=== PATIENT | male | born 1970 | race Hispanic/Latino ===

== ENCOUNTER 2024-03-23 03:01 | Emergency (ER) | payer SELFPAY ==
[2024-03-23] MEDS ORDERED: MORPHINE 4 MG/ML SYR ONE (03:13)
[2024-03-23] MEDS ORDERED: HYDROCODONE/APAP 5/325 MG TAB ONE (04:48)
[2024-03-23] MEDS ORDERED: KETOROLAC 30 MG/ML INJ ONE (04:48)
--- NOTE | 2024-03-23 05:39 | EDPHYS ---
Physician Documentation [facility] Name: Brian Bahean Age: 53 yrs Sex: Male : 1970 Arrival Date: 03/23/2024 Time: 03:01 Bed 6 Private MD: ED Physician Giorgio Cummins HPI: 03/23 03:31 This 53 yrs old Male presents to ER via EMS with complaints of Wrist Injury. rt 03:31 Patient presents to the ED with a wrist injury occurring at about 10 PM. Patient was rt walking, tripped, landing onto his wrist. States that the pain worsened this evening. Denies other injury, other acute complaints, symptoms are aching nature, nonradiating, moderate severity, no other aggravating or alleviating factors.. Historical: - Allergies: 03:07 No Known Allergies; bm8 - Home Meds: 03:07 None [Active]; bm8 - PMHx: 03:07 None; bm8 - PSHx: 03:07 None; bm8 - Immunization history:: Adult Immunizations unknown. - Infectious Disease History:: Denies. - Social history:: Smoking status: Patient reports the use of cigarette tobacco products, smokes one-half pack cigarettes per day, Patient uses alcohol, street drugs, marijuana. - Family history:: not pertinent. ROS: 03:31 Constitutional: Negative for fever, chills, and weight loss, Cardiovascular: Negative rt for chest pain, palpitations, and edema, Respiratory: Negative for shortness of breath, cough, wheezing, and pleuritic chest pain, Abdomen/GI: Negative for abdominal pain, nausea, vomiting, diarrhea, and constipation, Skin: Negative for injury, rash, and discoloration, Neuro: Negative for headache, weakness, numbness, tingling, and seizure, 03:31 MS/extremity: Positive for pain, swelling, Exam: 03:31 Constitutional: This is a well developed, well nourished patient who is awake, alert, rt and in no acute distress. Head/Face: Normocephalic, atraumatic. Chest/axilla: Normal chest wall appearance and motion. Nontender with no deformity. No lesions are appreciated. Cardiovascular: Regular rate and rhythm with a normal S1 and S2. No gallops, murmurs, or rubs. Normal PMI, no JVD. No pulse deficits. Respiratory: Lungs have equal breath sounds bilaterally, clear to auscultation and percussion. No rales, rhonchi or wheezes noted. No increased work of breathing, no retractions or nasal flaring. Abdomen/GI: Soft, non-tender, with normal bowel sounds. No distension or tympany. No guarding or rebound. No evidence of tenderness throughout. Skin: Warm, dry with normal turgor. Normal color with no rashes, no lesions, and no evidence of cellulitis. Neuro: Awake and alert, GCS 15, oriented to person, place, time, and situation. Cranial nerves II-XII grossly intact. Motor strength 5/5 in all extremities. Sensory grossly intact. Cerebellar exam normal. Normal gait. 03:31 Musculoskeletal/extremity: Tenderness over left scaphoid, mild swelling noted, no other focal areas of tenderness, no deformities, pulses, motor, sensation intact. Vital Signs: 03:03 BP 142 / 92; Pulse 105; Resp 18; Temp 98.1; Pulse Ox 98% on R/A; Weight 61.23 kg; bm8 Height 5 ft. 3 in. ; Pain 9/10; 04:52 BP 134 / 87; Pulse 87; Resp 19; Temp 98.1; Pulse Ox 100% ; Pain 9/10; bm8 06:05 BP 134 / 99; Pulse 80; Resp 17; Temp 98.1; Pulse Ox 100% ; Pain 3/10; bm8 03:03 Body Mass Index 23.91 (61.23 kg, 160.02 cm) bm8 03:03 Pain Scale: Adult bm8 04:52 Pain Scale: Adult bm8 06:05 Pain Scale: Adult bm8 Hemanth Coma Score: 03:11 Eye Response: spontaneous(4). Motor Response: obeys commands(6). Verbal Response: bm8 oriented(5). Total: 15. 06:05 Eye Response: spontaneous(4). Motor Response: obeys commands(6). Verbal Response: bm8 oriented(5). Total: 15. MDM: 03:02 Patient medically screened. rt 05:39 Differential diagnosis: Fracture, sprain. Data reviewed: vital signs, nurses notes, rt radiologic studies. Independent interpretation of the following test(s) in the Emergency Department X-Ray: My interpretation is No fracture seen on interpretation of x-ray images. Counseling: I had a detailed discussion with the patient and/or guardian regarding the historical points, exam findings, and any diagnostic results supporting the discharge/admit diagnosis, radiology results, the need for outpatient follow up, Discussed with patient possibility of radiooccult scaphoid fracture, instructed patient to follow-up in 1 week's time if his symptoms persist for repeat imaging. Response to treatment: the patient's symptoms have markedly improved after treatment. 03/23 03:07 Order name: Wrist Left (3 View) XRAY rt 03/23 05:38 Order name: Thumb Spica Splint; Complete Time: 06:05 rt Administered Medications: 03:18 Drug: morphine IM 4 mg IM once Route: IM; Site: right deltoid; rg5 04:52 Follow up: Response: No adverse reaction bm8 04:55 Drug: HYDROcodone-acetaminophen PO 5 mg-325 mg 1 tabs PO once Route: PO; rg5 06:05 Follow up: Response: No adverse reaction bm8 04:56 Drug: Ketorolac IM 15 mg IM once Route: IM; Site: left deltoid; rg5 06:05 Follow up: Response: No adverse reaction bm8 Disposition Summary: 03/23/24 05:39 Discharge Ordered Notes: Location: Home rt Problem: new rt Symptoms: have improved rt Condition: Stable rt Diagnosis - Sprain of unspecified part of left wrist and hand rt Followup: rt - With: Private Physician - When: 1 week - Reason: Discharge Instructions: - Discharge Summary Sheet rt - Wrist Sprain, Adult rt Forms: - Medication Reconciliation Form rt - Antibiotic Education rt - Prescription Opioid Use rt - Patient Portal Instructions rt - Leadership Thank You Letter rt Prescriptions: - Tramadol 50 mg Oral Tablet - take 1 tablet ORAL route every 8 hours as needed; 12 tablet; Refills: 0, rt Product Selection Permitted Signatures: Dispatcher [employer] Giorgio Lozano MD MD rt Manuel Santos RN RN bm8 Po Odonnell RN RN rg5
--- NOTE | 2024-03-23 05:39 | ER ---
Nurse's Notes [facility] Name: Brian Bahena Age: 53 yrs Sex: Male : 1970 Arrival Date: 03/23/2024 Time: 03:01 Bed 6 Private MD: Diagnosis: Sprain of unspecified part of left wrist and hand Presentation: 03/23 03:03 Chief complaint: Patient states: "I fell and tried to catch myself with my left hand , bm8 but now I am having pain and swelling in my left hand.". Coronavirus screen: Vaccine status: Patient reports receiving the 2nd dose of the covid vaccine. At this time, the client does not indicate any symptoms associated with coronavirus-19. Ebola Screen: Patient negative for fever greater than or equal to 101.5 degrees Fahrenheit, and additional compatible Ebola Virus Disease symptoms Patient denies exposure to infectious person. Patient denies travel to an Ebola-affected area in the 21 days before illness onset. No symptoms or risks identified at this time. Initial Sepsis Screen: Does the patient meet any 2 criteria? No. Patient's initial sepsis screen is negative. Does the patient have a suspected source of infection? No. Patient's initial sepsis screen is negative. Risk Assessment: Do you want to hurt yourself or someone else? Patient reports no desire to harm self or others. Onset of symptoms was March 22, 2024 at 19:30. 03:03 Method Of Arrival: EMS: [facility] bm8 03:03 Acuity: KAREN 4 bm8 Triage Assessment: 03:07 General: Appears in no apparent distress. uncomfortable, Behavior is calm, cooperative, bm8 appropriate for age. Pain: Complains of pain in left hand Pain does not radiate. Pain radiates to left arm Pain currently is 9 out of 10 on a pain scale. Quality of pain is described as aching, crampy. EENT: No deficits noted. No signs and/or symptoms were reported regarding the EENT system. Neuro: No deficits noted. Level of Consciousness is awake, alert, obeys commands, Oriented to person, place, time, situation, Appropriate for age. Cardiovascular: No deficits noted. Capillary refill < 3 seconds Patient's skin is warm and dry. Respiratory: Airway is patent Trachea midline Respiratory effort is even, unlabored, Respiratory pattern is regular, symmetrical. Musculoskeletal: Range of motion: limited in left wrist Swelling present in left hand Reports pain in left hand. Injury Description: pt fell and tried to catch self with out stretched hand. Historical: - Allergies: 03:07 No Known Allergies; bm8 - Home Meds: 03:07 None [Active]; bm8 - PMHx: 03:07 None; bm8 - PSHx: 03:07 None; bm8 - Immunization history:: Adult Immunizations unknown. - Infectious Disease History:: Denies. - Social history:: Smoking status: Patient reports the use of cigarette tobacco products, smokes one-half pack cigarettes per day, Patient uses alcohol, street drugs, marijuana. - Family history:: not pertinent. Screenin:11 [facility] ED Fall Risk Assessment (Adult) History of falling in the last 3 months, bm8 including since admission No falls in past 3 months (0 pts) Confusion or Disorientation No (0 pts) Intoxicated or Sedated No (0 pts) Impaired Gait No (0 pts) Mobility Assist Device Used No (0 pt) Altered Elimination No (0 pt) Score/Fall Risk Level 0 - 2 = Low Risk Oriented to surroundings, Maintained a safe environment, Educated pt \\T\\ family on fall prevention, incl call for assistance when getting out of bed, Assessed \\T\\ reinforced patient's understanding of fall precautions. Abuse screen: Denies threats or abuse. Nutritional screening: No deficits noted. Tuberculosis screening: No symptoms or risk factors identified. Assessment: 03:11 Reassessment: see triage note. bm8 04:52 Reassessment: pt states that there is no improvement since the morphine and is bm8 requesting something else for pain. provider informed. 06:05 Reassessment: Patient appears in no apparent distress at this time. Patient and/or bm8 family updated on plan of care and expected duration. Pain level reassessed. Patient is alert, oriented x 3, equal unlabored respirations, skin warm/dry/pink. Patient states feeling better. Patient states symptoms have improved. Vital Signs: 03:03 BP 142 / 92; Pulse 105; Resp 18; Temp 98.1; Pulse Ox 98% on R/A; Weight 61.23 kg; bm8 Height 5 ft. 3 in. ; Pain 9/10; 04:52 BP 134 / 87; Pulse 87; Resp 19; Temp 98.1; Pulse Ox 100% ; Pain 9/10; bm8 06:05 BP 134 / 99; Pulse 80; Resp 17; Temp 98.1; Pulse Ox 100% ; Pain 3/10; bm8 03:03 Body Mass Index 23.91 (61.23 kg, 160.02 cm) bm8 03:03 Pain Scale: Adult bm8 04:52 Pain Scale: Adult bm8 06:05 Pain Scale: Adult bm8 Story Coma Score: 03:11 Eye Response: spontaneous(4). Motor Response: obeys commands(6). Verbal Response: bm8 oriented(5). Total: 15. 06:05 Eye Response: spontaneous(4). Motor Response: obeys commands(6). Verbal Response: bm8 oriented(5). Total: 15. ED Course: 03:02 Patient arrived in ED. [email or web address] 03:02 Giorgio Cummins MD is Attending Physician. rt 03:03 Manuel Santos, RN is Primary Nurse. bm8 03:07 Triage completed. bm8 03:07 Arm band placed on right wrist. Patient placed in an exam room, on a stretcher, on bm8 pulse oximetry. 03:11 Patient has correct armband on for positive identification. Bed in low position. Call bm8 light in reach. Side rails up X 1. Client placed on continuous cardiac and pulse oximetry monitoring. NIBP monitoring applied. Pulse ox on. NIBP on. Door closed. Noise minimized. Warm blanket given. Verbal reassurance given. Elevated left hand. 03:11 No provider procedures requiring assistance completed. Patient did not have IV access bm8 during this emergency room visit. 03:30 Wrist Left (3 View) XRAY In Process Unspecified. EDMS 06:05 Provided Education on: post er care. bm8 06:05 preformed thumb spica splint placed on left hand. bm8 Administered Medications: 03:18 Drug: morphine IM 4 mg IM once Route: IM; Site: right deltoid; rg5 04:52 Follow up: Response: No adverse reaction bm8 04:55 Drug: HYDROcodone-acetaminophen PO 5 mg-325 mg 1 tabs PO once Route: PO; rg5 06:05 Follow up: Response: No adverse reaction bm8 04:56 Drug: Ketorolac IM 15 mg IM once Route: IM; Site: left deltoid; rg5 06:05 Follow up: Response: No adverse reaction bm8 Medication: 03:11 VIS not applicable for this client. bm8 Outcome: 05:39 Discharge ordered by . rt 06:05 Discharged to home ambulatory, bm8 06:05 Condition: stable 06:05 Discharge instructions given to patient, Instructed on discharge instructions, follow up and referral plans. Demonstrated understanding of instructions, follow-up care, medications, Prescriptions given X 1, 06:09 Patient left the ED. bm8 Signatures: Dispatcher [employer] EDMS Erendira Wen [id number] Giorgio Cummins MD MD rt Manuel Santos, RN RN bm8 Po Odonnell, RN RN rg5
[2024-03-23 06:34] VITALS: TEMP 98.1
[2024-03-23 06:52] VITALS: BP 134/99; O2SAT 100
--- NOTE | 2024-03-23 18:59 | RAD REPORT ---
EXAM DESCRIPTION: RAD - Wrist Left 3 View - 03/23/2024 3:28 am CLINICAL HISTORY: Pain COMPARISON: None TECHNIQUE: Left Wrist 3 Views FINDINGS: No fracture or dislocation. No significant sclerotic/lytic bone lesion. Joint spaces unremarkable. Soft tissues unremarkable. IMPRESSION: Unremarkable Left Wrist Radiographs. Electronically signed by: Manuel Medina MD 03/23/2024 05:25 AM CDT RP Due to temporary technical issues with the PACS/Fluency reporting system, reports are being signed by the in house radiologists without review as a courtesy to insure prompt reporting. The interpreting radiologist is fully responsible for the content of the report.
== END 2024-03-23 06:09 | disposition home or self-care (01) ==
LOC: ER 03:01
DX: S63.8X2A Sprain of other part of left wrist and hand, initial encounter (principal)
CPT/HCPCS: 96372; 99284